=== PATIENT | male | born 1950 | race Caucasian/White ===

== ENCOUNTER 2017-07-09 13:42 | Emergency (ER) | payer MEDICARE, OTHER ==
[~2017-07-09] VITALS: Ht 182.9 cm; Wt 80.7 kg
[~2017-07-09 13:42] MED LIST: ACET325 PO; ALBU90I INH; AMIO200 PO; AMLO5 PO; ARIP10 PO; ARIPIPRAZOLE5 MG PO; ASPI325; ASPI325 PO; ASPI325EC PO; ASPI81CH PO; ATEN25; ATEN25 PO; CELE200; CEPH500 PO; CITA20 PO; CLON.1 PO; CLON.5 PO; Ceftin500 MG PO; DIGO.25 PO; DILT120 PO; DILT120ERA PO; DOXY100 PO; DULO30 PO; DULO60; DULO60 PO; ENTOCORT; FLUO20; FLUSAL2505 IH; FLUSAL2505 INH; FURO20 PO; FURO40 PO; GABA100 PO; GABA300 PO; GABA600 PO; GABA800 PO; GUAI600T33 PO; HYDACE10B PO; HYDACE5; HYDACE5 PO; HYDACE5325; HYDACE5325 PO; HYDCHL12.5 PO; HYDCHL25 PO; HYDHCL25 PO; HYDR1TAB94; HYDR1TAB94 PO; LEVFLO500 PO; LISI10 PO; LISI20 PO; LISI5 PO; LONOX; METO100ER PO; METO25 PO; METO25ER; METO25ER PO; METO50 PO; METO50ER PO; METR250 PO; Motion Sickness25 M1 PO; NEBI5 PO; NICO14TP TOP; NITR.4SL SL; Neurontin 300300 MG PO; Nicoderm Cq1 EAC1 TOP; OMEP40CA12 PO; ONDA4ODT MM; OXYACE5T PO; OXYACE7.5T PO; POTA10T PO; POTCHL10ER PO; POTCHL20ER PO; PRED10 PO; PRED20 PO; PROCODE120 PO; PROM12.5S PR; PROM25 PO; Percocet 5-3251 EACH PO; Prednisone20 MG PO; Prinivil10 MG PO; ROBITUSSIN100 MG/5 M PO; RXHYDACE PO; SIMV20 PO; SIMV80 PO; SPIR25 PO; SULTRIDS PO; TIOT18; TIOT18 IH; TORS10 PO; TORSE20; Toprol Xl50 MG PO; Valium5 MG PO; Ventolin Soln3 ML; Ventolin/Prove6.7 GM; WARF2.5 PO; WARF5; WARF5 PO; WARF6 PO; WARF7.5 PO; XARELTO10 MG PO; XARELTO15 MG PO; Zithromax250 MG PO; [UNRECOGNIZED DRUG - REMARK]; [UNRECOGNIZED DRUG - REMARK]
[2017-07-09] MEDS ORDERED: GABA600 PO ×2 (14:05→15:07)
[2017-07-09] MEDS ORDERED: METO100ER PO (14:06)
[2017-07-09 14:42] LABS: BASOPHILS PERCENT AUTO 1 % (0-2); EOSINOPHILS ABSOLUTE AUTO 0.05 K/mm3 (0.00-0.68); EOSINOPHILS PERCENT AUTO 0 % (0-6); Hematocrit 42.7 % (37.0-53.0); Hemoglobin 14.1 g/dL (13.5-17.5); IMMATURE GRAN ABSOLUTE AUTO 0.23 K/mm3 (0.00-0.10); IMMATURE GRAN PERCENT AUTO 2 % (0-1); LYMPHOCYTES ABSOLUTE AUTO 1.11 K/mm3 (0.84-5.20); LYMPHOCYTES PERCENT AUTO 8 % (21-46); MONOCYTES ABSOLUTE AUTO 1.49 K/mm3 (0.16-1.47); MONOCYTES PERCENT AUTO 10 % (4-13); Mean Corpuscular HGB 28.1 pg (26.0-34.0); Mean Corpuscular Volume 85 fL (80-100); Mean Platelet Volume 10.6 fL (9.1-12.4); NEUTROPHILS PERCENT AUTO 80 % (41-73); Platelet Count 404 K/mm3 (150-400); RDW Coefficient Variation 15.5 % (11.7-14.2); RDW Standard Deviation 47.9 fL (35.1-46.3); Red Blood Cell Count 5.01 M/mm3 (4.30-5.90); White Blood Cell Count 14.88 K/mm3 (4.00-11.30)
[2017-07-09 15:02] LABS: Albumin, Blood 2.4 g/dL (3.4-5.0); Albumin/Globulin Ratio 0.5 (0.8-1.8); Bilirubin, Total 1.6 mg/dL (0.1-1.0); Bun/Creatinine Ratio 19.3 (12.0-20.0); Calcium, Blood 9.3 mg/dL (8.5-10.1); Creatinine, Blood 1.4 mg/dL (0.60-1.20); Globulin, Blood 5.3 g/dL (2.2-4.0); Total Protein, Blood 7.7 g/dL (6.4-8.2)
[2017-07-09] MEDS ORDERED: GABA300 PO (15:06)
[2017-07-09] MEDS ORDERED: Prinivil5 MG PO (15:07)
[2017-07-09] MEDS ORDERED: DILT120 PO (15:07)
[2017-07-09] MEDS ORDERED: DULO30 PO (15:08)
[2017-07-09] MEDS ORDERED: Norco 5-325 Ta1 EACH PO (15:19)
== END 2017-07-09 16:17 | disposition home or self-care (01) ==
LOC: ER 13:42
PROVIDERS: Emergency Medicine
DX: G89.29 Other chronic pain (principal); M25.50 Pain in unspecified joint; N18.9 Chronic kidney disease, unspecified; I48.91 Unspecified atrial fibrillation; J44.9 Chronic obstructive pulmonary disease, unspecified; F31.9 Bipolar disorder, unspecified; Z87.891 Personal history of nicotine dependence; Z79.899 Other long term (current) drug therapy
CPT/HCPCS: 36415; 71046; 80053; 85025; 93005; 93010; 96374; 96375; 99283; J1885; J3010

== ENCOUNTER 2017-07-13 11:48 | Inpatient (IN) | payer MEDICARE ==
[~2017-07-13] VITALS: Ht 182.9 cm; Wt 75.9 kg
[~2017-07-13 11:48] MED LIST changes: +Norco 5-325 Ta1 EACH PO; +Prinivil5 MG PO
[2017-07-13 15:02] LABS: BASOPHILS ABSOLUTE AUTO 0.18 K/mm3 (0.00-0.23); BASOPHILS PERCENT AUTO 1 % (0-2); EOSINOPHILS ABSOLUTE AUTO 0.03 K/mm3 (0.00-0.68); EOSINOPHILS PERCENT AUTO 0 % (0-6); Hematocrit 40.7 % (37.0-53.0); Hemoglobin 13.1 g/dL (13.5-17.5); IMMATURE GRAN ABSOLUTE AUTO 0.54 K/mm3 (0.00-0.10); IMMATURE GRAN PERCENT AUTO 3 % (0-1); LYMPHOCYTES ABSOLUTE AUTO 1.39 K/mm3 (0.84-5.20); LYMPHOCYTES PERCENT AUTO 7 % (21-46); MONOCYTES ABSOLUTE AUTO 2.18 K/mm3 (0.16-1.47); MONOCYTES PERCENT AUTO 11 % (4-13); Mean Corpuscular HGB 27.8 pg (26.0-34.0); Mean Corpuscular HGB Conc 32.2 g/dL (31.5-36.5); Mean Corpuscular Volume 86 fL (80-100); Mean Platelet Volume 10.9 fL (9.1-12.4); NEUTROPHILS ABSOLUTE AUTO 15.62 K/mm3 (1.96-9.15); NEUTROPHILS PERCENT AUTO 78 % (41-73); Platelet Count 485 K/mm3 (150-400); RDW Coefficient Variation 15.7 % (11.7-14.2); RDW Standard Deviation 49.3 fL (35.1-46.3); Red Blood Cell Count 4.72 M/mm3 (4.30-5.90); White Blood Cell Count 19.94 K/mm3 (4.00-11.30)
[2017-07-13 15:11] LABS: International Normalized Ratio 1.46; Prothrombin Time Results 15.4 Sec (9.7-11.5)
[2017-07-13 15:30] LABS: Alanine Aminotransfer (ALT/SGP 23 U/L (12-78); Albumin, Blood 2.5 g/dL (3.4-5.0); Albumin/Globulin Ratio 0.4 (0.8-1.8); Alk Phos 235 U/L (50-136); Anion Gap 8 mmol/L (6-16); Aspartate Aminotrans (AST/SGOT 16 U/L (12-37); Bilirubin, Total 1.5 mg/dL (0.1-1.0); Blood Urea Nitrogen 26 mg/dL (8-24); Bun/Creatinine Ratio 18.6 (12.0-20.0); CO2, Blood 25 mmol/L (21-32); CPK Creatine Kinase 38 U/L (39-308); Calcium, Blood 9.3 mg/dL (8.5-10.1); Chloride, Blood 99 mmol/L (98-108); Globulin, Blood 5.6 g/dL (2.2-4.0); Glomerular Filtration Rate 53 (60-); Glucose, Blood 117 mg/dL (70-99); Magnesium, Blood 2.2 mg/dL (1.6-2.4); Sodium, Blood 132 mmol/L (136-145); Total Protein, Blood 8.1 g/dL (6.4-8.2); Troponin I <0.015 ng/mL (0.000-0.040)
[2017-07-13 15:57] LABS: Creatine Kinase MB <0.5 ng/mL (0.0-3.6); Creatine Kinase MB Index Unable to Calculate (0.0-4.0)
[2017-07-13 16:04] LABS: U Amphetamine Screen Not Detected; U Cannabinoids Screen DETECTED; U Methamphetamine Screen DETECTED; U Opiates Screen DETECTED
[2017-07-13 16:05] LABS: U Barbituate Screen Not Detected; U Benzodiazapine Screen Not Detected; U Buprenorphine Screen Not Detected; U Cocaine Screen Not Detected; U Methadone Screen Not Detected; U Oxycodone Screen Not Detected; U Phencyclidine Screen Not Detected; U Propoxyphene Screen Not Detected
[2017-07-13 16:13] LABS: Bicarbonate Venous 22.8 mmol/L (24.0-30.0); PCO2 Venous 49.3 mmHg (38-42); PO2 Venous 46.1 mmHg (38-42); pH Blood Venous 7.32 (7.34-7.37)
[2017-07-14 07:48] LABS: Hematocrit 32.6 % (37.0-53.0); Mean Corpuscular HGB 28.6 pg (26.0-34.0); Mean Corpuscular HGB Conc 33.7 g/dL (31.5-36.5); Mean Corpuscular Volume 85 fL (80-100); Mean Platelet Volume 10.2 fL (9.1-12.4); Platelet Count 382 K/mm3 (150-400); RDW Coefficient Variation 15.8 % (11.7-14.2); RDW Standard Deviation 48.6 fL (35.1-46.3); Red Blood Cell Count 3.85 M/mm3 (4.30-5.90); White Blood Cell Count 15.78 K/mm3 (4.00-11.30)
[2017-07-14] MEDS ORDERED: DULO30 PO (11:20)
[2017-07-14] MEDS ORDERED: DILT120ERA PO (11:21)
[2017-07-14] MEDS ORDERED: XARELTO20 MG PO (12:31)
[2017-07-14] MEDS ORDERED: Nitrostat0.4 MG SL (12:32)
[2017-07-14] MEDS ORDERED: Abilify5 MG PO (12:33)
[2017-07-15 05:17] LABS: Hematocrit 34.9 % (37.0-53.0); Hemoglobin 11.3 g/dL (13.5-17.5); Mean Corpuscular HGB 27.8 pg (26.0-34.0); Mean Corpuscular HGB Conc 32.4 g/dL (31.5-36.5); Mean Corpuscular Volume 86 fL (80-100); Mean Platelet Volume 10.8 fL (9.1-12.4); Platelet Count 369 K/mm3 (150-400); RDW Coefficient Variation 15.9 % (11.7-14.2); RDW Standard Deviation 49.9 fL (35.1-46.3); Red Blood Cell Count 4.06 M/mm3 (4.30-5.90); White Blood Cell Count 13.31 K/mm3 (4.00-11.30)
[2017-07-15 05:39] LABS: Anion Gap 7 mmol/L (6-16); Blood Urea Nitrogen 24 mg/dL (8-24); Bun/Creatinine Ratio 21.6 (12.0-20.0); CO2, Blood 27 mmol/L (21-32); Chloride, Blood 101 mmol/L (98-108); Creatinine, Blood 1.11 mg/dL (0.60-1.20); Glomerular Filtration Rate >60 (60-); Glucose, Blood 95 mg/dL (70-99); Sodium, Blood 135 mmol/L (136-145)
[2017-07-16] MEDS ORDERED: HYDR1TAB94 PO (10:50)
== END 2017-07-16 16:31 | disposition home or self-care (01) | DRG 300 ==
LOC: ER 11:48 → MEDS 17:38 → ENPENDDIS 07-16 10:06 → MEDS 07-16 16:31
PROVIDERS: Emergency Medicine; Internal Medicine
DX: I77.9 Disorder of arteries and arterioles, unspecified (principal); T82.856A Stenosis of peripheral vascular stent, initial encounter; R65.10 Systemic inflammatory response syndrome (SIRS) of non-infectious origin without acute organ dysfunction; I42.0 Dilated cardiomyopathy; I50.22 Chronic systolic (congestive) heart failure; J44.9 Chronic obstructive pulmonary disease, unspecified; F31.9 Bipolar disorder, unspecified; F17.210 Nicotine dependence, cigarettes, uncomplicated; F10.20 Alcohol dependence, uncomplicated; N18.3 Chronic kidney disease, stage 3 (moderate); Z91.14 Patient's other noncompliance with medication regimen; Z95.810 Presence of automatic (implantable) cardiac defibrillator; I48.2 Chronic atrial fibrillation
CPT/HCPCS: 36415; 71046; 80048; 80053; 82550; 82553; 82803; 83735; 83880; 84443; 84484; 85025; 85027; 85610; 85730; 93005; 93010; 93922; 93923; 93925; 96361; 96374; 96375; 97110; 97116; 97162; 97530; 99285; G8978; G8979; J1644; J1650; J2405; J3010; J7120

== ENCOUNTER 2018-04-06 09:01 | Emergency (ER) | payer MEDICARE, OTHER ==
[~2018-04-06] VITALS: Ht 182.9 cm; Wt 74.5 kg
[~2018-04-06 09:01] MED LIST changes: +Abilify5 MG PO; +Nitrostat0.4 MG SL; +XARELTO20 MG PO
[2018-04-06 10:15] LABS: Bicarbonate Venous 23.1 mmol/L (24.0-30.0); PCO2 Venous 35 mmHg (38-42); PO2 Venous 68 mmHg (38-42); pH Blood Venous 7.41 (7.34-7.37)
[2018-04-06 10:18] LABS: BASOPHILS ABSOLUTE AUTO 0.11 K/mm3 (0.00-0.23); BASOPHILS PERCENT AUTO 1 % (0-2); EOSINOPHILS ABSOLUTE AUTO 0.15 K/mm3 (0.00-0.68); EOSINOPHILS PERCENT AUTO 1 % (0-6); Hematocrit 36.5 % (37.0-53.0); Hemoglobin 11.9 g/dL (13.5-17.5); IMMATURE GRAN ABSOLUTE AUTO 0.19 K/mm3 (0.00-0.10); IMMATURE GRAN PERCENT AUTO 1 % (0-1); LYMPHOCYTES ABSOLUTE AUTO 1.24 K/mm3 (0.84-5.20); LYMPHOCYTES PERCENT AUTO 7 % (21-46); MONOCYTES ABSOLUTE AUTO 1.65 K/mm3 (0.16-1.47); MONOCYTES PERCENT AUTO 9 % (4-13); Mean Corpuscular HGB 25.6 pg (26.0-34.0); Mean Corpuscular HGB Conc 32.6 g/dL (31.5-36.5); Mean Corpuscular Volume 79 fL (80-100); Mean Platelet Volume 9.9 fL (9.1-12.4); NEUTROPHILS ABSOLUTE AUTO 14.57 K/mm3 (1.96-9.15); NEUTROPHILS PERCENT AUTO 81 % (41-73); Platelet Count 382 K/mm3 (150-400); RDW Coefficient Variation 18.5 % (11.7-14.2); RDW Standard Deviation 52.6 fL (35.1-46.3); Red Blood Cell Count 4.65 M/mm3 (4.30-5.90); White Blood Cell Count 17.91 K/mm3 (4.00-11.30)
[2018-04-06 10:37] LABS: Alanine Aminotransfer (ALT/SGP 36 U/L (12-78); Albumin, Blood 2.7 g/dL (3.4-5.0); Albumin/Globulin Ratio 0.5 (0.8-1.8); Alk Phos 272 U/L (50-136); Anion Gap 8 mmol/L (6-16); Aspartate Aminotrans (AST/SGOT 38 U/L (12-37); Blood Urea Nitrogen 24 mg/dL (8-24); Bun/Creatinine Ratio 18.8 (12.0-20.0); CO2, Blood 23 mmol/L (21-32); CPK Creatine Kinase 431 U/L (39-308); Calcium, Blood 8.8 mg/dL (8.5-10.1); Chloride, Blood 99 mmol/L (98-108); Creatinine, Blood 1.28 mg/dL (0.60-1.20); Globulin, Blood 5.1 g/dL (2.2-4.0); Glomerular Filtration Rate 59 (60-); Glucose, Blood 106 mg/dL (70-99); Potassium, Blood 3.6 mmol/L (3.5-5.5); Sodium, Blood 130 mmol/L (136-145); Total Protein, Blood 7.8 g/dL (6.4-8.2); Troponin I <0.015 ng/mL (0.000-0.040)
[2018-04-06 10:41] LABS: Creatine Kinase MB 6.8 ng/mL (0.0-3.6); Creatine Kinase MB Index 1.6 (0.0-4.0)
[2018-04-06 12:09] LABS: Ethanol (Alcohol), Blood, Med <3 mg/dL; Magnesium, Blood 2.2 mg/dL (1.6-2.4)
[2018-04-06 12:29] LABS: International Normalized Ratio 1.42; Prothrombin Time Results 14.6 Sec (9.7-11.5)
== END 2018-04-06 13:14 | disposition short-term general hospital (02) ==
LOC: ER 09:01
PROVIDERS: Emergency Medicine
DX: I77.9 Disorder of arteries and arterioles, unspecified (principal); J18.9 Pneumonia, unspecified organism; I48.92 Unspecified atrial flutter; R79.89 Other specified abnormal findings of blood chemistry; Z88.8 Allergy status to other drugs, medicaments and biological substances; Z88.5 Allergy status to narcotic agent; Z79.899 Other long term (current) drug therapy; N18.9 Chronic kidney disease, unspecified; I48.91 Unspecified atrial fibrillation; J44.9 Chronic obstructive pulmonary disease, unspecified; F31.9 Bipolar disorder, unspecified; F17.210 Nicotine dependence, cigarettes, uncomplicated
CPT/HCPCS: 36415; 71045; 80053; 82550; 82553; 82803; 83605; 83735; 84484; 85025; 85610; 85730; 87040; 93005; 93010; 96361; 96365; 96367; 96375; 99285-25; G0480; J0696; J1644; J2405; J3475; J7030

== ENCOUNTER → 2018-04-22 | Outpatient (CLI) | payer MEDICARE, OTHER ==
[2018-04-22 13:24] LABS: BASOPHILS ABSOLUTE AUTO 0.24 K/mm3 (0.00-0.23); BASOPHILS PERCENT AUTO 2 % (0-2); EOSINOPHILS ABSOLUTE AUTO 0.48 K/mm3 (0.00-0.68); EOSINOPHILS PERCENT AUTO 3 % (0-6); Hematocrit 28.6 % (37.0-53.0); Hemoglobin 8.8 g/dL (13.5-17.5); IMMATURE GRAN ABSOLUTE AUTO 0.11 K/mm3 (0.00-0.10); IMMATURE GRAN PERCENT AUTO 1 % (0-1); LYMPHOCYTES ABSOLUTE AUTO 1.85 K/mm3 (0.84-5.20); LYMPHOCYTES PERCENT AUTO 13 % (21-46); MONOCYTES ABSOLUTE AUTO 1.02 K/mm3 (0.16-1.47); MONOCYTES PERCENT AUTO 7 % (4-13); Mean Corpuscular HGB 24.7 pg (26.0-34.0); Mean Corpuscular HGB Conc 30.8 g/dL (31.5-36.5); Mean Corpuscular Volume 80 fL (80-100); Mean Platelet Volume 9.3 fL (9.1-12.4); NEUTROPHILS ABSOLUTE AUTO 10.32 K/mm3 (1.96-9.15); NEUTROPHILS PERCENT AUTO 74 % (41-73); Platelet Count 680 K/mm3 (150-400); RDW Coefficient Variation 19.4 % (11.7-14.2); RDW Standard Deviation 55.9 fL (35.1-46.3); Red Blood Cell Count 3.56 M/mm3 (4.30-5.90); White Blood Cell Count 14.02 K/mm3 (4.00-11.30)
[2018-04-22 13:29] LABS: Bilirubin, Urine Neg (Neg); Blood, Urine Neg (Neg); Glucose Qualitative, Urine Neg (Neg); Ketones, Urine Neg (Neg); Leukocyte Esterase, Urine Neg (Neg); Nitrite, Urine Neg (Neg); Protein, Urine Neg (Neg); Urobilinogen, Urine NORM (Normal)
[2018-04-22 13:57] LABS: Anion Gap 8 mmol/L (6-16); Blood Urea Nitrogen 18 mg/dL (8-24); CO2, Blood 26 mmol/L (21-32); Calcium, Blood 9.1 mg/dL (8.5-10.1); Chloride, Blood 103 mmol/L (98-108); Glomerular Filtration Rate >60 (60-); Glucose, Blood 79 mg/dL (70-99); Potassium, Blood 4.8 mmol/L (3.5-5.5); Sodium, Blood 137 mmol/L (136-145)
[2018-04-22 14:03] LABS: Appearance, Urine Clear (Clear); Color, Urine Yellow (P-Yellow)
== END | disposition home or self-care (01) ==
LOC: EDSTATUS 08:15 → LAB UVN 13:14 → LAB 13:14 → LAB SHORT 13:14
PROVIDERS: Nurse Practitioner Family
DX: N39.0 Urinary tract infection, site not specified (principal); R53.81 Other malaise; R10.9 Unspecified abdominal pain
CPT/HCPCS: 80048; 81003; 85025

== ENCOUNTER 2018-05-20 12:34 | Observation (INO) | payer MEDICARE, OTHER ==
[~2018-05-20] VITALS: Ht 182.9 cm; Wt 72.5 kg
[2018-05-20 13:03] LABS: BASOPHILS PERCENT AUTO 1 % (0-2); EOSINOPHILS PERCENT AUTO 4 % (0-6); Hematocrit 33.4 % (37.0-53.0); Hemoglobin 10.3 g/dL (13.5-17.5); IMMATURE GRAN ABSOLUTE AUTO 0.06 K/mm3 (0.00-0.10); IMMATURE GRAN PERCENT AUTO 1 % (0-1); LYMPHOCYTES ABSOLUTE AUTO 1.61 K/mm3 (0.84-5.20); LYMPHOCYTES PERCENT AUTO 14 % (21-46); MONOCYTES ABSOLUTE AUTO 0.97 K/mm3 (0.16-1.47); MONOCYTES PERCENT AUTO 9 % (4-13); Mean Corpuscular HGB 24.1 pg (26.0-34.0); Mean Corpuscular HGB Conc 30.8 g/dL (31.5-36.5); Mean Corpuscular Volume 78 fL (80-100); Mean Platelet Volume 10.3 fL (9.1-12.4); NEUTROPHILS ABSOLUTE AUTO 8.29 K/mm3 (1.96-9.15); NEUTROPHILS PERCENT AUTO 73 % (41-73); Platelet Count 480 K/mm3 (150-400); RDW Coefficient Variation 18.1 % (11.7-14.2); Red Blood Cell Count 4.28 M/mm3 (4.30-5.90); White Blood Cell Count 11.43 K/mm3 (4.00-11.30)
[2018-05-20 13:32] LABS: Alanine Aminotransfer (ALT/SGP 19 U/L (12-78); Albumin, Blood 2.8 g/dL (3.4-5.0); Albumin/Globulin Ratio 0.5 (0.8-1.8); Alk Phos 180 U/L (50-136); Anion Gap 9 mmol/L (6-16); Aspartate Aminotrans (AST/SGOT 9 U/L (12-37); Bilirubin, Total 0.7 mg/dL (0.1-1.0); Blood Urea Nitrogen 18 mg/dL (8-24); Bun/Creatinine Ratio 16.2 (12.0-20.0); CO2, Blood 24 mmol/L (21-32); Chloride, Blood 103 mmol/L (98-108); Creatinine, Blood 1.11 mg/dL (0.60-1.20); Globulin, Blood 5.3 g/dL (2.2-4.0); Glomerular Filtration Rate >60 (60-); Glucose, Blood 142 mg/dL (70-99); Potassium, Blood 3.4 mmol/L (3.5-5.5); Sodium, Blood 136 mmol/L (136-145); Total Protein, Blood 8.1 g/dL (6.4-8.2)
[2018-05-20] MEDS ORDERED: ATOR40TA PO (14:44)
[2018-05-20] MEDS ORDERED: DILTIAZEM 24HR120 MG PO (14:44)
[2018-05-20] MEDS ORDERED: OXYC5 PO (14:55)
[2018-05-21 04:46] LABS: BASOPHILS ABSOLUTE AUTO 0.08 K/mm3 (0.00-0.23); BASOPHILS PERCENT AUTO 1 % (0-2); EOSINOPHILS PERCENT AUTO 6 % (0-6); Hematocrit 28.4 % (37.0-53.0); Hemoglobin 8.7 g/dL (13.5-17.5); IMMATURE GRAN ABSOLUTE AUTO 0.03 K/mm3 (0.00-0.10); IMMATURE GRAN PERCENT AUTO 0 % (0-1); LYMPHOCYTES ABSOLUTE AUTO 1.41 K/mm3 (0.84-5.20); LYMPHOCYTES PERCENT AUTO 17 % (21-46); MONOCYTES ABSOLUTE AUTO 0.87 K/mm3 (0.16-1.47); MONOCYTES PERCENT AUTO 11 % (4-13); Mean Corpuscular HGB 23.6 pg (26.0-34.0); Mean Corpuscular HGB Conc 30.6 g/dL (31.5-36.5); Mean Corpuscular Volume 77 fL (80-100); Mean Platelet Volume 10.2 fL (9.1-12.4); NEUTROPHILS PERCENT AUTO 65 % (41-73); Platelet Count 387 K/mm3 (150-400); RDW Standard Deviation 50.2 fL (35.1-46.3); Red Blood Cell Count 3.69 M/mm3 (4.30-5.90); White Blood Cell Count 8.19 K/mm3 (4.00-11.30)
[2018-05-21 05:02] LABS: Anion Gap 8 mmol/L (6-16); Blood Urea Nitrogen 15 mg/dL (8-24); Bun/Creatinine Ratio 14.9 (12.0-20.0); CO2, Blood 22 mmol/L (21-32); Calcium, Blood 8.5 mg/dL (8.5-10.1); Chloride, Blood 108 mmol/L (98-108); Creatinine, Blood 1.01 mg/dL (0.60-1.20); Glomerular Filtration Rate >60 (60-); Glucose, Blood 88 mg/dL (70-99); Potassium, Blood 3.8 mmol/L (3.5-5.5); Sodium, Blood 138 mmol/L (136-145)
[2018-05-21 13:47] LABS: Hematocrit 31.2 % (37.0-53.0); Hemoglobin 9.4 g/dL (13.5-17.5); Mean Corpuscular HGB 23.6 pg (26.0-34.0); Mean Corpuscular HGB Conc 30.1 g/dL (31.5-36.5); Mean Corpuscular Volume 78 fL (80-100); Mean Platelet Volume 9.8 fL (9.1-12.4); Platelet Count 442 K/mm3 (150-400); RDW Coefficient Variation 18.1 % (11.7-14.2); RDW Standard Deviation 51.2 fL (35.1-46.3); Red Blood Cell Count 3.99 M/mm3 (4.30-5.90); White Blood Cell Count 9.73 K/mm3 (4.00-11.30)
[2018-05-21 13:54] LABS: Anion Gap 7 mmol/L (6-16); Blood Urea Nitrogen 16 mg/dL (8-24); Bun/Creatinine Ratio 16.1 (12.0-20.0); CO2, Blood 25 mmol/L (21-32); Calcium, Blood 8.7 mg/dL (8.5-10.1); Chloride, Blood 108 mmol/L (98-108); Creatinine, Blood 0.99 mg/dL (0.60-1.20); Glomerular Filtration Rate >60 (60-); Glucose, Blood 96 mg/dL (70-99); Potassium, Blood 3.9 mmol/L (3.5-5.5); Sodium, Blood 140 mmol/L (136-145)
[2018-05-21] MEDS ORDERED: ACET325 PO (15:45)
[2018-05-21] MEDS ORDERED: FOLI1 PO (15:51)
[2018-05-21] MEDS ORDERED: Hair, Skin & N1 EACH PO (15:52)
[2018-05-21] MEDS ORDERED: K-Tab10 MEQ PO (15:53)
[2018-05-21] MEDS ORDERED: ONDA4ODT MM (15:54)
[2018-05-21] MEDS ORDERED: Thiamine HCl100 MG PO (15:54)
[2018-05-21] MEDS ORDERED: ONE DAILY ESS400 MCG PO (15:57)
--- NOTE | 2018-05-21 17:13 | NUR ---
1700 PT DISCHARGED HOME VIA PERSONAL VEHICLE ACCOMPANIED AND DRIVEN BY FRIEND. PT ESCORTED TO FACILITY ENTRANCE VIA W/C BY VIDEO GAME REPAIR TECHNICIAN. IV REMOVED. TELE SENT TO U. D/C PAPERWORK REVIEWED WITH PT AND COPY PROVIDED. NEW RX FAXED TO [facility] PER PT REQUEST. NO NEW CHANGES OR CONCERNS.
== END 2018-05-21 17:02 | disposition home or self-care (01) ==
LOC: ER 12:34 → ERHOLD 12:35 → MEDS 20:08
PROVIDERS: Emergency Medicine; ADMIT Family Medicine
DX: Z45.018 Encounter for adjustment and management of other part of cardiac pacemaker (principal); I48.91 Unspecified atrial fibrillation; I25.10 Atherosclerotic heart disease of native coronary artery without angina pectoris; I42.9 Cardiomyopathy, unspecified; I50.20 Unspecified systolic (congestive) heart failure; N18.3 Chronic kidney disease, stage 3 (moderate); D63.1 Anemia in chronic kidney disease; J44.9 Chronic obstructive pulmonary disease, unspecified; E87.6 Hypokalemia; D72.829 Elevated white blood cell count, unspecified; F31.9 Bipolar disorder, unspecified; Z87.891 Personal history of nicotine dependence; Z88.8 Allergy status to other drugs, medicaments and biological substances; Z88.1 Allergy status to other antibiotic agents; Z88.5 Allergy status to narcotic agent; Z79.899 Other long term (current) drug therapy; Z79.02 Long term (current) use of antithrombotics/antiplatelets
CPT/HCPCS: 36415; 71045; 80048; 80053; 83735; 84443; 84484; 85025; 85027; 93005; 93010; 96360; 96361; 99285-25; G0378; J7030

== ENCOUNTER 2019-02-12 17:14 | Inpatient (IN) | payer MEDICARE, OTHER ==
[~2019-02-12] VITALS: Ht 172.7 cm; Wt 61.5 kg
[~2019-02-12 17:14] MED LIST changes: +ATOR40TA PO; +DILTIAZEM 24HR120 MG PO; +FOLI1 PO; +Hair, Skin & N1 EACH PO; +K-TAB ER20 ME1 PO; +ONE DAILY ESS400 MCG PO; +Thiamine HCl100 MG PO
[2019-02-12 17:56] LABS: BASOPHILS ABSOLUTE AUTO 0.11 K/mm3 (0.00-0.23); BASOPHILS PERCENT AUTO 1 % (0-2); EOSINOPHILS ABSOLUTE AUTO 0.15 K/mm3 (0.00-0.68); EOSINOPHILS PERCENT AUTO 1 % (0-6); Hematocrit 32.8 % (37.0-53.0); Hemoglobin 9.5 g/dL (13.5-17.5); IMMATURE GRAN ABSOLUTE AUTO 0.09 K/mm3 (0.00-0.10); IMMATURE GRAN PERCENT AUTO 1 % (0-1); LYMPHOCYTES ABSOLUTE AUTO 1.37 K/mm3 (0.84-5.20); LYMPHOCYTES PERCENT AUTO 13 % (21-46); MONOCYTES ABSOLUTE AUTO 1.12 K/mm3 (0.16-1.47); MONOCYTES PERCENT AUTO 11 % (4-13); Mean Corpuscular HGB 19.3 pg (26.0-34.0); Mean Corpuscular Volume 67 fL (80-100); Mean Platelet Volume 9.7 fL (9.1-12.4); NEUTROPHILS ABSOLUTE AUTO 7.61 K/mm3 (1.96-9.15); NEUTROPHILS PERCENT AUTO 73 % (41-73); Platelet Count 534 K/mm3 (150-400); RDW Coefficient Variation 20.5 % (11.7-14.2); RDW Standard Deviation 47.4 fL (35.1-46.3); Red Blood Cell Count 4.91 M/mm3 (4.30-5.90); White Blood Cell Count 10.45 K/mm3 (4.00-11.30)
[2019-02-12 18:11] LABS: Alanine Aminotransfer (ALT/SGP 15 U/L (12-78); Albumin, Blood 2.3 g/dL (3.4-5.0); Albumin/Globulin Ratio 0.4 (0.8-1.8); Alk Phos 166 U/L (50-136); Anion Gap 11 mmol/L (6-16); Aspartate Aminotrans (AST/SGOT 14 U/L (12-37); Blood Urea Nitrogen 21 mg/dL (8-24); Bun/Creatinine Ratio 18.3 (12.0-20.0); CO2, Blood 22 mmol/L (21-32); Chloride, Blood 103 mmol/L (98-108); Creatinine, Blood 1.15 mg/dL (0.60-1.20); Ethanol (Alcohol), Blood, Med <3 mg/dL; Globulin, Blood 5.4 g/dL (2.2-4.0); Glomerular Filtration Rate >60 (60-); Glucose, Blood 100 mg/dL (70-99); Magnesium, Blood 1.7 mg/dL (1.6-2.4); Potassium, Blood 3.6 mmol/L (3.5-5.5); Sodium, Blood 136 mmol/L (136-145); Total Protein, Blood 7.7 g/dL (6.4-8.2); Troponin I <0.015 ng/mL (0.000-0.040)
[2019-02-12 18:13] LABS: International Normalized Ratio 1.3; Prothrombin Time Results 13.5 Sec (9.7-11.5)
[2019-02-12 18:14] LABS: Free Thyroxine 1.29 ng/dL (0.70-1.60)
[2019-02-12 18:41] LABS: Source, Urine Catheter
[2019-02-12 18:44] LABS: Blood, Urine 2+ (Neg); Glucose Qualitative, Urine Neg (Neg); Ketones, Urine 3+ (Neg); Leukocyte Esterase, Urine 1+ (Neg); Nitrite, Urine Neg (Neg); Protein, Urine 2+ (Neg); Urobilinogen, Urine 2+ (Normal)
[2019-02-12 18:51] LABS: Bilirubin, Urine 1+ (Neg)
[2019-02-12 18:54] LABS: Appearance, Urine Clear (Clear); Color, Urine Yellow (P-Yellow)
[2019-02-12 18:55] LABS: White Blood Cells, Urine 0-2 /hpf (0-5)
[2019-02-12 18:56] LABS: Bacteria Rare /hpf; Squamous Epithelial Cells Not Seen /hpf (Few); Yeast/Fungi Urine Rare /hpf
[2019-02-12] MEDS ORDERED: Neurontin400 MG PO (19:28)
[2019-02-12 21:26] LABS: U Amphetamine Screen DETECTED; U Barbituate Screen Not Detected; U Methamphetamine Screen DETECTED
[2019-02-12 21:27] LABS: U Benzodiazapine Screen Not Detected; U Buprenorphine Screen DETECTED; U Cannabinoids Screen DETECTED; U Cocaine Screen Not Detected; U Methadone Screen Not Detected; U Opiates Screen Not Detected; U Oxycodone Screen Not Detected; U Phencyclidine Screen Not Detected; U Propoxyphene Screen Not Detected
--- NOTE | 2019-02-13 01:43 | NUR ---
ASSUME CARE RECEIVED REPORT FROM ANGELA SALAMANCA (). PATIENT ADMITTED WITH AMS AND AFIB W RVR. PATIENT ARRIVED FROM ED ALERT, BUT CONFUSED. WOULD NOT FOLLOW COMMANDS, MUMBLED WORDS. TRUJILLO 16F PLACED IN ED, PATENT WITH CLEAR YELLOW URINE. BLOOD NOTED AROUND URETHRA FROM PT PULLING AT TRUJILLO. PATIENT ON 2L NC SATS ABOVE 94%. LACTIC ACID 2.2. BANANA BAG AND IVF ORDERED. 20G TO R AC COVERED W COBAND TO PREVENT PT PULLING. LACTIC ACID 2.2. NOTIFIED- OKAY WITH IV FLUIDS AND BANANA BAG ORDERED IN TO BE FINISHED IN ICU/PCU. LUNGS CTAB. CARDIAC DIET ORDERED. PATIENT ON CWA PROTOCOL FOR POSSIBLE WITHDRAWALS. WILL CONTINUE TO MONITOR.
[2019-02-13 03:31] LABS: BASOPHILS ABSOLUTE AUTO 0.09 K/mm3 (0.00-0.23); BASOPHILS PERCENT AUTO 1 % (0-2); EOSINOPHILS ABSOLUTE AUTO 0.15 K/mm3 (0.00-0.68); EOSINOPHILS PERCENT AUTO 2 % (0-6); Hematocrit 28.6 % (37.0-53.0); Hemoglobin 8.4 g/dL (13.5-17.5); IMMATURE GRAN ABSOLUTE AUTO 0.05 K/mm3 (0.00-0.10); IMMATURE GRAN PERCENT AUTO 1 % (0-1); LYMPHOCYTES ABSOLUTE AUTO 1.81 K/mm3 (0.84-5.20); LYMPHOCYTES PERCENT AUTO 19 % (21-46); MONOCYTES ABSOLUTE AUTO 0.98 K/mm3 (0.16-1.47); MONOCYTES PERCENT AUTO 10 % (4-13); Mean Corpuscular HGB 19.3 pg (26.0-34.0); Mean Corpuscular HGB Conc 29.4 g/dL (31.5-36.5); Mean Corpuscular Volume 66 fL (80-100); Mean Platelet Volume 9.5 fL (9.1-12.4); NEUTROPHILS ABSOLUTE AUTO 6.58 K/mm3 (1.96-9.15); NEUTROPHILS PERCENT AUTO 68 % (41-73); Platelet Count 425 K/mm3 (150-400); RDW Coefficient Variation 20.2 % (11.7-14.2); RDW Standard Deviation 45.3 fL (35.1-46.3); Red Blood Cell Count 4.36 M/mm3 (4.30-5.90); White Blood Cell Count 9.66 K/mm3 (4.00-11.30)
[2019-02-13 03:48] LABS: Anion Gap 7 mmol/L (6-16); Blood Urea Nitrogen 17 mg/dL (8-24); Bun/Creatinine Ratio 16.5 (12.0-20.0); CO2, Blood 24 mmol/L (21-32); Calcium, Blood 8.3 mg/dL (8.5-10.1); Chloride, Blood 105 mmol/L (98-108); Creatinine, Blood 1.03 mg/dL (0.60-1.20); Glomerular Filtration Rate >60 (60-); Glucose, Blood 110 mg/dL (70-99); Magnesium, Blood 1.9 mg/dL (1.6-2.4); Potassium, Blood 3.2 mmol/L (3.5-5.5); Sodium, Blood 136 mmol/L (136-145)
--- NOTE | 2019-02-13 07:20 | NUR ---
SHIFT SUMMARY PT IS NOW MORE RESPONSIVE, ANSWERS SOME QUESTIONS. STILL BOUTS OF CONFUSION, GARBLED SPEECH. AFIB WITH RVR CONTINUED WITH PVC'S. PVC OCCURENCE INCREASED THROUGHOUT NIGHT. PATIENT RECEIVED 1G ATIVAN PER CWA. SATS ABOVE 94% ON RA. LUNGS CTAB, DIMINISHED BASES. WILL CONTINUE TO MONITOR UNTIL SHIFT CHANGE WITH ONCOMING NURSE.
--- NOTE | 2019-02-13 08:48 | NUR ---
CARE ASSUMED CARE AND REPORT ASSUMED FROM RADHA MILLER. PT SLEEPING BUT EASILY AROUSES. NO PAIN AT THIS TIME. HR AFIB WITH RUNS OF RVR, HR 100-140S. LUNG SOUNDS DIMINISHED THROUGHOUT. CXR OBTAINED AT CHANGE OF SHIFT. NS BOLUS INFUSION STARTED ALONG WITH ANTIBIOTICS. MD NOTIFIED ABOUT LOW POTASSIUM; REPLACEMENT ORDERED. WILL CONTINUE TO MONITOR.
--- NOTE | 2019-02-13 11:40 | NUR ---
REASSESMENT PT CONFUSED, AGIATED AND ATTEMPTING TO GET OUT OF BED. ATIVAN 1 MG IVP GIVEN. CIWA 14. AFIB, HR 110-130. BANANA BAG INFUSING. TRUJILLO CATH REMAINS PATENT AND DRAINING. HAVING TO CONTINUALLY REORIENT PT AND ENCOURAGE TO REMAIN CALM AND IN BED. WILL CONTINUE TO MONITOR.
--- NOTE | 2019-02-13 11:42 | NUR ---
Echocardiogram completed.
[2019-02-13] MEDS ORDERED: FURO40 PO (16:25)
[2019-02-13] MEDS ORDERED: THERA1 EACH PO (16:26)
[2019-02-13] MEDS ORDERED: LIDO700A20 TOP (16:26)
[2019-02-13] MEDS ORDERED: OMEPRAZOLE20 MG PO (16:27)
[2019-02-13] MEDS ORDERED: VITAMIN D-32000 UNIT PO (16:28)
[2019-02-13] MEDS ORDERED: Prednisone10 MG PO (16:28)
[2019-02-13] MEDS ORDERED: ASCO500 PO (16:30)
[2019-02-13] MEDS ORDERED: Amiodarone HCl200 MG PO (16:30)
--- NOTE | 2019-02-13 18:29 | NUR ---
SHIFT SUMMARY PT SLEPT MOST OF DAY. IS LESS ALTERED THIS EVENING; ASKING WHERE HE IS AND HOW HE GOT HERE. RECEIVED BEDBATH AND LINEN CHANGE. HAS BEEN IN AFIB ENTIRE SHIFT, WITH IMPROVEMENT IN HR; HR NOW 100-110. RECEIVED 1800 ML BOLUS FLUID PER SEPSIS BUNDLE ALONG WITH BANANA BAG. POTASSIUM REPLACED ORALLY. 1 DOSE OF ATIVAN GIVEN FOR ELEVATED CIWA AND AGITATION. BP WNL. MIV NS INFUSING AT 100 ML/HR PER ORDER. WILL GIVE BEDSIDE, HANDOFF REPORT TO NOC RN.
[2019-02-14 03:50] LABS: BASOPHILS PERCENT AUTO 1 % (0-2); EOSINOPHILS ABSOLUTE AUTO 0.44 K/mm3 (0.00-0.68); EOSINOPHILS PERCENT AUTO 4 % (0-6); Hematocrit 29.5 % (37.0-53.0); Hemoglobin 8.6 g/dL (13.5-17.5); IMMATURE GRAN ABSOLUTE AUTO 0.04 K/mm3 (0.00-0.10); IMMATURE GRAN PERCENT AUTO 0 % (0-1); LYMPHOCYTES ABSOLUTE AUTO 1.38 K/mm3 (0.84-5.20); LYMPHOCYTES PERCENT AUTO 14 % (21-46); MONOCYTES ABSOLUTE AUTO 0.89 K/mm3 (0.16-1.47); MONOCYTES PERCENT AUTO 9 % (4-13); Mean Corpuscular HGB 19.4 pg (26.0-34.0); Mean Corpuscular HGB Conc 29.2 g/dL (31.5-36.5); Mean Corpuscular Volume 66 fL (80-100); Mean Platelet Volume 9.4 fL (9.1-12.4); NEUTROPHILS ABSOLUTE AUTO 7.36 K/mm3 (1.96-9.15); NEUTROPHILS PERCENT AUTO 72 % (41-73); Platelet Count 406 K/mm3 (150-400); RDW Coefficient Variation 20.5 % (11.7-14.2); RDW Standard Deviation 47.4 fL (35.1-46.3); Red Blood Cell Count 4.44 M/mm3 (4.30-5.90); White Blood Cell Count 10.21 K/mm3 (4.00-11.30)
[2019-02-14 04:06] LABS: Anion Gap 6 mmol/L (6-16); Blood Urea Nitrogen 12 mg/dL (8-24); Bun/Creatinine Ratio 12.4 (12.0-20.0); CO2, Blood 24 mmol/L (21-32); Calcium, Blood 8.2 mg/dL (8.5-10.1); Chloride, Blood 108 mmol/L (98-108); Creatinine, Blood 0.97 mg/dL (0.60-1.20); Glomerular Filtration Rate >60 (60-); Glucose, Blood 88 mg/dL (70-99); Magnesium, Blood 1.9 mg/dL (1.6-2.4); Potassium, Blood 3.7 mmol/L (3.5-5.5); Sodium, Blood 138 mmol/L (136-145)
--- NOTE | 2019-02-14 05:33 | NUR ---
SHIFT SUMMARY PATIENT ALERT, BUT STILL CONFUSED. HALLUCATIONS (AUDIO AND VISUAL) SEEM TO BE INCREASING THIS SHIFT. HR 100-110S WITH SHORT EPISODES OF 140S (LASTING 5-10 SECONDS). URINE CLEAR YELLOW. AFEBRILE. SBP 120-150S. LINENS CHANGED AND PATIENT WIPED DOWN. NO BM THIS SHIFT. NS AT 100/HR PER SEPSIS BUNDLE. LUNGS CTAB. SATS ABOVE 95% ON RA. WILL CONTINUE TO MONITOR UNTIL REPORT GIUEN TO ONCOMING NURSE.
--- NOTE | 2019-02-14 08:00 | NUR ---
INITIAL ASSESMENT PT TRYING TO CLIMB OUT OF BED WITH LEGS HANGING OVER RAIL, POSI VEST IN PLACE PER MD ORDER. PT CONFUSED, PLEASENT AND REDIRECTABLE. AGGITATED AT TIMES AND "WANTS A BEER". VSS, PALP PULSES T/O, AFEBRILE AND NO EDEMA. RA WITH SATS IN THE HIGH 90S AND NO S/S OF RESP DISTRESS OR SOB. ABD SOFT FLAT AND NON TENDER WITH BTS T/O. UO ADEQUATE VIA TRUJILLO CLEAR AND YELLOW. NO SKIN ISSUES, RESTRAINTS PER PROTOCOL. CIWA PER MD ORDER, WILL CONT TO MONITOR.
[2019-02-14 09:09] LABS: BASOPHILS ABSOLUTE AUTO 0.09 K/mm3 (0.00-0.23); BASOPHILS PERCENT AUTO 1 % (0-2); EOSINOPHILS ABSOLUTE AUTO 0.42 K/mm3 (0.00-0.68); EOSINOPHILS PERCENT AUTO 4 % (0-6); Hematocrit 30.5 % (37.0-53.0); Hemoglobin 8.7 g/dL (13.5-17.5); IMMATURE GRAN ABSOLUTE AUTO 0.07 K/mm3 (0.00-0.10); IMMATURE GRAN PERCENT AUTO 1 % (0-1); LYMPHOCYTES ABSOLUTE AUTO 1.29 K/mm3 (0.84-5.20); LYMPHOCYTES PERCENT AUTO 13 % (21-46); MONOCYTES PERCENT AUTO 9 % (4-13); Mean Corpuscular HGB 19.2 pg (26.0-34.0); Mean Corpuscular HGB Conc 28.5 g/dL (31.5-36.5); Mean Corpuscular Volume 67 fL (80-100); Mean Platelet Volume 9.2 fL (9.1-12.4); NEUTROPHILS ABSOLUTE AUTO 7.43 K/mm3 (1.96-9.15); NEUTROPHILS PERCENT AUTO 73 % (41-73); Platelet Count 436 K/mm3 (150-400); RDW Coefficient Variation 20.4 % (11.7-14.2); RDW Standard Deviation 48.6 fL (35.1-46.3); Red Blood Cell Count 4.54 M/mm3 (4.30-5.90)
--- NOTE | 2019-02-14 14:49 | NUR ---
Brief Pt visit this afternoon. Pt is A&O to self only. Pt's speach is slurred and difficult to understand. Attempted to reo-orientate Pt with current place, reason for hospital stay, and current year. 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 Pt appears comfortable at this time. Spoke with bedside nurse Trung and discussed case. Palliative Care will F/U when family is present.
--- NOTE | 2019-02-14 16:00 | NUR ---
PT UPDATE PT REMAINS INTERMIT CONFUSED AND ORIENT TO SELF AND PLACE. CIWA ASSESMENT Q2 WITH PRN ATIVAN PER MD ORDER. HR GRADUAL INCREASE T/O SHIFT TO THE 140S-160S MD ADVISED AND DILT QTT STARTED TO KEEP HR BELOW 100. SBP STABLE. RA CLEAR AND DIM BILAT. UO ADEQUATE.VEST IN PLACE AND SECURE SKIN INTACT.
--- NOTE | 2019-02-14 19:45 | NUR ---
ASSUMPTION OF CARE PT AWAKE IN BED, ORIENTED TO SELF, PT ABLE TO IDENTIFY CURRENT CITY BUT NOT FACILITY OR SITUATION, PT DOES NOT KNOW MONTH/DAY BUT WAS ABLE TO IDENTIFY UPCOMING HOLIDAY (), PT ANSWERS QUESTIONS APROPRIATELY BUT HAS SOME NONSENSICAL SPEECH/STATEMENTS SUCH "THIS DIRT IS GETTING SILLY", CIWA SCORE OF 7. O2 SATURATIONS 100% ON RA, LUNGS DIMINISHED T/O. MONITOR SHOWS AFIB WITH RATE 80'S-90'S, DILTIAZEM GTT @ 10mg/hr. TRUJILLO IN PLACE DRAINING CLEAR YELLOW URINE. PT TOLERATING ANUSHA VEST WELL. CALL LIGHT IN REACH AND PT INSTRUCTED ON USE.
[2019-02-15 03:34] LABS: BASOPHILS ABSOLUTE AUTO 0.08 K/mm3 (0.00-0.23); BASOPHILS PERCENT AUTO 1 % (0-2); EOSINOPHILS ABSOLUTE AUTO 0.43 K/mm3 (0.00-0.68); EOSINOPHILS PERCENT AUTO 5 % (0-6); Hematocrit 32.9 % (37.0-53.0); Hemoglobin 9.5 g/dL (13.5-17.5); IMMATURE GRAN ABSOLUTE AUTO 0.05 K/mm3 (0.00-0.10); IMMATURE GRAN PERCENT AUTO 1 % (0-1); LYMPHOCYTES ABSOLUTE AUTO 1.08 K/mm3 (0.84-5.20); LYMPHOCYTES PERCENT AUTO 12 % (21-46); MONOCYTES ABSOLUTE AUTO 0.73 K/mm3 (0.16-1.47); MONOCYTES PERCENT AUTO 8 % (4-13); Mean Corpuscular HGB 19.1 pg (26.0-34.0); Mean Corpuscular HGB Conc 28.9 g/dL (31.5-36.5); Mean Corpuscular Volume 66 fL (80-100); NEUTROPHILS ABSOLUTE AUTO 6.94 K/mm3 (1.96-9.15); NEUTROPHILS PERCENT AUTO 75 % (41-73); Platelet Count 428 K/mm3 (150-400); RDW Coefficient Variation 20.8 % (11.7-14.2); RDW Standard Deviation 47.2 fL (35.1-46.3); Red Blood Cell Count 4.98 M/mm3 (4.30-5.90); White Blood Cell Count 9.31 K/mm3 (4.00-11.30)
[2019-02-15 03:52] LABS: Alanine Aminotransfer (ALT/SGP 12 U/L (12-78); Albumin, Blood 2.1 g/dL (3.4-5.0); Albumin/Globulin Ratio 0.4 (0.8-1.8); Alk Phos 147 U/L (50-136); Anion Gap 8 mmol/L (6-16); Aspartate Aminotrans (AST/SGOT 6 U/L (12-37); Bilirubin, Direct 0.2 mg/dL (0.0-0.3); Bilirubin, Indirect 0.1 mg/dL (0.1-0.7); Bilirubin, Total 0.3 mg/dL (0.1-1.0); Blood Urea Nitrogen 8 mg/dL (8-24); Bun/Creatinine Ratio 9.8 (12.0-20.0); CO2, Blood 23 mmol/L (21-32); Calcium, Blood 8.4 mg/dL (8.5-10.1); Chloride, Blood 107 mmol/L (98-108); Creatinine, Blood 0.82 mg/dL (0.60-1.20); Globulin, Blood 4.8 g/dL (2.2-4.0); Glomerular Filtration Rate >60 (60-); Glucose, Blood 127 mg/dL (70-99); Phosphorus, Blood 2.9 mg/dL (2.5-4.9); Potassium, Blood 3.4 mmol/L (3.5-5.5); Sodium, Blood 138 mmol/L (136-145); Total Protein, Blood 6.9 g/dL (6.4-8.2)
--- NOTE | 2019-02-15 06:44 | NUR ---
SHIFT SUMMARY PT RESTED T/O SHIFT, AWAKES EASILY, ORIENTED TO SELF AND LOCATION WITH PERIODS OF CONFUSION REGARDING DATE AND SITUATION, CIWA FROM 3-14, ATIVAN AND LIBRIUM PROVIDED NEEDED/ORDERED. PT MAINTAINED O2 SATURATIONS ABOVE 90% T/O SHIFT ON ROOM AIR, LUNGS DIMINISHED T/O. MONITOR SHOWS AFIB WITH RATE 80'S-105, DILTIAZEM ON SB SINCE APPROX 2300, PT HYPERTENSIVE WITH BP 140'S SYSTOLIC. PT TOLERATED PO INTAKE WELL. TRUJILLO IN PLACE, DRAINING CLEAR YELLOW URINE.
[2019-02-15 08:39] LABS: BASOPHILS ABSOLUTE AUTO 0.08 K/mm3 (0.00-0.23); BASOPHILS PERCENT AUTO 1 % (0-2); EOSINOPHILS ABSOLUTE AUTO 0.39 K/mm3 (0.00-0.68); EOSINOPHILS PERCENT AUTO 4 % (0-6); Hematocrit 32.7 % (37.0-53.0); Hemoglobin 9.3 g/dL (13.5-17.5); IMMATURE GRAN ABSOLUTE AUTO 0.06 K/mm3 (0.00-0.10); IMMATURE GRAN PERCENT AUTO 1 % (0-1); LYMPHOCYTES ABSOLUTE AUTO 1.21 K/mm3 (0.84-5.20); LYMPHOCYTES PERCENT AUTO 12 % (21-46); MONOCYTES ABSOLUTE AUTO 0.79 K/mm3 (0.16-1.47); MONOCYTES PERCENT AUTO 8 % (4-13); Mean Corpuscular HGB 19.3 pg (26.0-34.0); Mean Corpuscular HGB Conc 28.4 g/dL (31.5-36.5); Mean Corpuscular Volume 68 fL (80-100); Mean Platelet Volume 9.6 fL (9.1-12.4); NEUTROPHILS ABSOLUTE AUTO 7.21 K/mm3 (1.96-9.15); NEUTROPHILS PERCENT AUTO 74 % (41-73); Platelet Count 433 K/mm3 (150-400); RDW Coefficient Variation 21.1 % (11.7-14.2); Red Blood Cell Count 4.82 M/mm3 (4.30-5.90); White Blood Cell Count 9.74 K/mm3 (4.00-11.30)
--- NOTE | 2019-02-15 16:20 | NUR ---
CARE ASSUMED 0900: CARE ASSUMED, ASSESSMENT COMPLETED. PT AWAKE, ALERT, ORIENTED TO SELF AND SURROUNDINGS, PLEASANT AND COOPERATIVE, EASILY REDIRECTABLE. HR 100-130'S AFIB, OTHER VSS, PT DENIES CHEST PAIN/PRESSURE AT THIS TIME, DENIES SOB. NS AND ABX INFUSING PER ORDERS, ANUSHA VEST IN PLACE FOR SAFETY, BED ALARM ON. 1000: DR. LIZTRATE IN TO SEE PATIENT, NEW ORDERS. PT TOLERATING P.O. MEDICATIONS WELL, DENIES NEEDS OR C/O. TOLERATING BREAKFAST WITHOUT DIFFICULTY. 1200: PT REFUSED LUNCH HE FINISHED EATING BREAKFAST LATE, IS NOW LYING IN BED RESTING WITH EYES CLOSED, VSS. HR 70'S-80'S AFIB. 1300: PT REMAINS PLEASANTLY CONFUSED, EASILY REDIRECTABLE. ANUSHA SILVA'D AT THIS TIME. BED ALARM ON. 1600: PT SLEEPING, VSS, HR REMAINS 70'S AFIB. BED ALARM REMAINS ON.
--- NOTE | 2019-02-15 17:59 | NUR ---
Spiritual Care initial note: Mr. Jolley was awake, but did not engage in conversation. He appears comfortable and denied pain. I held his hand and prayed for him. He seems well cared-for by nursing. No family/friends present. Sat with him, holding his hand for awhile. Tunnel Drier Operator services will remain available.
--- NOTE | 2019-02-15 19:16 | NUR ---
PT UP TO CHAIR FOR DINNER, TOLERATED WELL. BACK TO BED WITH WALKER AND 1 PERSON ASSIST, GAIT SLOW AND WEAK. BED ALARM SET, PT DENIES C/O AT THIS TIME. HR REMAINS 70'S AFIB, CIWA'S MINIMAL TODAY, RESPONDED WELL TO LIBRIUM. PT PLEASANT AND COOPERATIVE, VSS, REPORT TO ONCOMING SHIFT.
[2019-02-16 03:10] LABS: BASOPHILS ABSOLUTE AUTO 0.07 K/mm3 (0.00-0.23); BASOPHILS PERCENT AUTO 1 % (0-2); EOSINOPHILS ABSOLUTE AUTO 0.41 K/mm3 (0.00-0.68); EOSINOPHILS PERCENT AUTO 4 % (0-6); Hematocrit 29.7 % (37.0-53.0); Hemoglobin 8.5 g/dL (13.5-17.5); IMMATURE GRAN ABSOLUTE AUTO 0.06 K/mm3 (0.00-0.10); IMMATURE GRAN PERCENT AUTO 1 % (0-1); LYMPHOCYTES ABSOLUTE AUTO 1.13 K/mm3 (0.84-5.20); LYMPHOCYTES PERCENT AUTO 11 % (21-46); MONOCYTES ABSOLUTE AUTO 0.66 K/mm3 (0.16-1.47); MONOCYTES PERCENT AUTO 6 % (4-13); Mean Corpuscular HGB 19.1 pg (26.0-34.0); Mean Corpuscular HGB Conc 28.6 g/dL (31.5-36.5); Mean Corpuscular Volume 67 fL (80-100); Mean Platelet Volume 9.2 fL (9.1-12.4); NEUTROPHILS PERCENT AUTO 77 % (41-73); Platelet Count 419 K/mm3 (150-400); RDW Coefficient Variation 20.8 % (11.7-14.2); RDW Standard Deviation 48.4 fL (35.1-46.3); Red Blood Cell Count 4.44 M/mm3 (4.30-5.90); White Blood Cell Count 10.33 K/mm3 (4.00-11.30)
[2019-02-16 03:28] LABS: Anion Gap 7 mmol/L (6-16); Blood Urea Nitrogen 12 mg/dL (8-24); Bun/Creatinine Ratio 10.8 (12.0-20.0); CO2, Blood 25 mmol/L (21-32); Calcium, Blood 8.3 mg/dL (8.5-10.1); Chloride, Blood 106 mmol/L (98-108); Creatinine, Blood 1.11 mg/dL (0.60-1.20); Glomerular Filtration Rate >60 (60-); Glucose, Blood 101 mg/dL (70-99); Phosphorus, Blood 2.6 mg/dL (2.5-4.9); Potassium, Blood 3.9 mmol/L (3.5-5.5); Sodium, Blood 138 mmol/L (136-145)
--- NOTE | 2019-02-16 05:40 | NUR ---
SHIFT SUMMARY PATIENT IS A LOT MORE AWARE TODAY. RECALLS THINGS FROM PAST. CONFUSION FROM TIME TO TIME. PATIENT HAD TROUBLE STAYING ASLEEP, BUT NAPPED. GOOD APPETITE. UOP ADEQUATE. SATS >94% ON RA. LUNGS CLEAR WITH DIMINISHED BASES. STRONG PULSES THROUGHOUT. NO BM. PATIENT STILL IN AFIB, RATE CONTROLLED 80-90S. AFEBRILE THROUGHOUT NIGHT. WILL CONTINUE TO MONITOR UNITL DAYSHIFT NURSE REPORT.
--- NOTE | 2019-02-16 08:00 | NUR ---
ASSUMED CARE NOTE: RECEVIED REPORT FROM RADHA MILLER. PT IS ALERT AND ORIENTED TO SELF. PT IS CONFUSED AND IS UNABLE TO RECALL RECENT EVENTS. HOWEVER, PT IS ABLE TO FOLLOW DIRECTIONS AND IS EASILY REDIRECTABLE. PT IS ON RA WITH SPO2 ABOVE 94%, PT DENIES ANY CP/SOB. UNSURE WHEN LAST BM WAS, PT IS C/O ABDOMINAL TENDERNESS, WILL ASK FOR BOWEL CARE. TAB ALARM IN PLACE, BED AT LOWEST LEVEL, CALL LIGHT WITHIN REACH.
--- NOTE | 2019-02-16 17:15 | NUR ---
TRANSFER/SUMMARY NOTE: PT CONTINUES TO BE CONFUSED, HOWEVER IS ABLE TO FOLLOW DIRECTIONS. PT HAS BEEN GETTING UP 1X WITH FWW TO CHAIR AND BSC. PT'S L FA 20G IV IS PATNET AND SALINE LOCKED. AFIB WITH HR IN THE 70'S. TRUJILLO PATNET AND DRAINING YELLOW CLEAR URINE. REPORT WAS CALLED TO BOBBI MILLER. PT WAS TRANSFERD IN TO MEDICAL UNIT. PT WAS ORIENTED TO ROOM AND STAFF. BED AT LOWEST LEVEL, BED ALARM ON AND CALL LIGHT IS WITHIN REACH.
--- NOTE | 2019-02-16 18:41 | NUR ---
SHIFT SUMMARY CIWA 3 ASSESSED. PATIENT ARRIVED BY BED FROM ICU. PATIENT PLEASANTLY CONFUSED AT THIS TIME. TELEMETRY IN PLACE.
--- NOTE | 2019-02-17 01:32 | NUR ---
PT CARE BEING TRANSFERRED TO ROLANDA MILLER. PT HAD SOME BILAT WRIST DISCOMFORT THAT RESPONDED WELL TO TYLENOL. PT HAS BEEN EATING T/O SHIFT AND RESTING. PT FOLLOWS DIRECTIONS AND IS EASILY DIRECTABLE. PT HAD A LARGE BM. PT CIWA HAS BEEN A 3 AND REQUIRED NO TX.
--- NOTE | 2019-02-17 06:59 | NUR ---
02/17/19 0630 AWAKE AND ANXIOUS FOR BREAKFAST. DENIES ANY PAIN AT PRESENT. VITALS STABLE. UNEVENTFUL NIGHT.
[2019-02-17 09:39] LABS: BASOPHILS PERCENT AUTO 1 % (0-2); EOSINOPHILS ABSOLUTE AUTO 0.46 K/mm3 (0.00-0.68); EOSINOPHILS PERCENT AUTO 4 % (0-6); Hematocrit 28.8 % (37.0-53.0); Hemoglobin 8.3 g/dL (13.5-17.5); IMMATURE GRAN ABSOLUTE AUTO 0.11 K/mm3 (0.00-0.10); IMMATURE GRAN PERCENT AUTO 1 % (0-1); LYMPHOCYTES PERCENT AUTO 13 % (21-46); MONOCYTES ABSOLUTE AUTO 0.81 K/mm3 (0.16-1.47); MONOCYTES PERCENT AUTO 7 % (4-13); Mean Corpuscular HGB 19.3 pg (26.0-34.0); Mean Corpuscular HGB Conc 28.8 g/dL (31.5-36.5); Mean Corpuscular Volume 67 fL (80-100); Mean Platelet Volume 9.7 fL (9.1-12.4); NEUTROPHILS ABSOLUTE AUTO 8.42 K/mm3 (1.96-9.15); NEUTROPHILS PERCENT AUTO 74 % (41-73); Platelet Count 399 K/mm3 (150-400); RDW Coefficient Variation 20.7 % (11.7-14.2); RDW Standard Deviation 48.9 fL (35.1-46.3); Red Blood Cell Count 4.31 M/mm3 (4.30-5.90)
[2019-02-17 09:54] LABS: Anion Gap 5 mmol/L (6-16); Blood Urea Nitrogen 18 mg/dL (8-24); Bun/Creatinine Ratio 19.3 (12.0-20.0); CO2, Blood 22 mmol/L (21-32); Calcium, Blood 8.4 mg/dL (8.5-10.1); Chloride, Blood 110 mmol/L (98-108); Creatinine, Blood 0.94 mg/dL (0.60-1.20); Glomerular Filtration Rate >60 (60-); Glucose, Blood 130 mg/dL (70-99); Sodium, Blood 137 mmol/L (136-145)
--- NOTE | 2019-02-17 17:26 | NUR ---
SHIFT SUMMARY PATIENT A/O X 3 FOR LARGEST PORTION OF SHIFT. PATIENT VSS OBSERVED STABLE THROUGHOUT SHIFT. PATIENT DIDN'T PRESENT WITH S/S OF ETOH WITHDRAWAL DURING SHIFT. TRUJILLO CATH DC'D AND PATIENT IS VOIDING NORMALLY. PATIENT TELEMETRY DISCONTINUED. BED ALARM REMOVED PATIENT HAS BEEN AMBULATING APPROPRIATELY AND DEMONSTRATES UNDERSTANDING OF LIMITATIONS AND HAS BEEN CALLING FOR ASSISTANCE APPROPRIATELY. PATIENT REPORTS NEEDING ASSISTANCE WITH HOME ADL'S AND CARE MANAGEMENT HAS BEEN WORKING WITH PATIENT TO REMEDY ISSUES. PATIENT [id number] IS TO GO HOME TOMORROW 02/18/19.
[2019-02-18 05:05] LABS: BASOPHILS ABSOLUTE AUTO 0.11 K/mm3 (0.00-0.23); BASOPHILS PERCENT AUTO 1 % (0-2); EOSINOPHILS PERCENT AUTO 4 % (0-6); Hematocrit 29.6 % (37.0-53.0); Hemoglobin 8.6 g/dL (13.5-17.5); IMMATURE GRAN ABSOLUTE AUTO 0.16 K/mm3 (0.00-0.10); IMMATURE GRAN PERCENT AUTO 1 % (0-1); LYMPHOCYTES ABSOLUTE AUTO 1.89 K/mm3 (0.84-5.20); LYMPHOCYTES PERCENT AUTO 16 % (21-46); MONOCYTES ABSOLUTE AUTO 0.98 K/mm3 (0.16-1.47); MONOCYTES PERCENT AUTO 8 % (4-13); Mean Corpuscular HGB 19.3 pg (26.0-34.0); Mean Corpuscular HGB Conc 29.1 g/dL (31.5-36.5); Mean Corpuscular Volume 66 fL (80-100); NEUTROPHILS ABSOLUTE AUTO 8.21 K/mm3 (1.96-9.15); NEUTROPHILS PERCENT AUTO 69 % (41-73); Platelet Count 436 K/mm3 (150-400); RDW Coefficient Variation 21.2 % (11.7-14.2); RDW Standard Deviation 48.8 fL (35.1-46.3); Red Blood Cell Count 4.46 M/mm3 (4.30-5.90); White Blood Cell Count 11.85 K/mm3 (4.00-11.30)
--- NOTE | 2019-02-18 05:15 | NUR ---
PT REPORTS ATHRITIC AND NERVE PAIN TO SHOULDERS AND NECK UNRESOLVED BY PRN TYLENOL. REPORTED TO DR CARRILLO. ORDERS GABAPENTIN 100 MG PO TID PRN.
[2019-02-18 06:07] LABS: Anion Gap 6 mmol/L (6-16); Blood Urea Nitrogen 20 mg/dL (8-24); Bun/Creatinine Ratio 21.9 (12.0-20.0); CO2, Blood 23 mmol/L (21-32); Chloride, Blood 108 mmol/L (98-108); Creatinine, Blood 0.92 mg/dL (0.60-1.20); Glomerular Filtration Rate >60 (60-); Glucose, Blood 87 mg/dL (70-99); Potassium, Blood 4.2 mmol/L (3.5-5.5); Sodium, Blood 137 mmol/L (136-145)
--- NOTE | 2019-02-18 06:17 | NUR ---
PRESSER AUTOMATIC SUMMARY PT A/O X3. PLEASANT AND COOPERATIVE. STATED HE WAS NOT ABLE TO SLEEP WELL TONIGHT DUE TO ARTHRITIC PAIN. WAS MEDICATED WITH TYLENOL ONCE THIS SHIFT BUT THAT DID NOT HELP WITH PAIN. WHEN ASKED WHAT HELPED HIM WITH HIS ARTHRITIC PAIN AT HOME, PT SAID GABAPENTIN DID. DR. CARRILLO NOTIFIED OF THIS. GABAPENTIN 100MG PRN RID ORDERED AND GIVEN. 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 CIWA SCORED A 4 IN BEGINNING OF SHIFT. WILL RE-ASSESS CIWA SCORE TOWARDS THE END OF SHIFT. VSS, NO ACUTE CHANGES THIS SHIFT.
--- NOTE | 2019-02-18 06:43 | NUR ---
CIWA SCORES REASSESSED TO BE A SCORE OF 5. PT STATES HE HAS ANIETY AT BASELINE. PLEASANT AND COOPERATIVE. DOES NOT SEEM TO BE IN ANY DISTRESS.
[2019-02-18] MEDS ORDERED: ABILIFY MYCITE15 MG PO (08:34)
[2019-02-18] MEDS ORDERED: ATOR40TA PO (08:35)
[2019-02-18] MEDS ORDERED: Cymbalta30 MG PO (08:36)
[2019-02-18] MEDS ORDERED: FOLI1 PO (08:36)
[2019-02-18] MEDS ORDERED: GABA100 PO (08:39)
[2019-02-18] MEDS ORDERED: NITR.6SL SL (08:41)
[2019-02-18] MEDS ORDERED: LISI5 PO (08:50)
[2019-02-18] MEDS ORDERED: METO25 PO (08:52)
[2019-02-18] MEDS ORDERED: ONE DAILY ESS400 MCG PO (08:54)
[2019-02-18] MEDS ORDERED: OXYC5 PO (08:55)
[2019-02-18] MEDS ORDERED: ROXICODONE5 MG PO (08:57)
[2019-02-18] MEDS ORDERED: Thiamine HCl100 MG PO (08:58)
[2019-02-18] MEDS ORDERED: CEPH500 PO (09:16)
[2019-02-18] MEDS ORDERED: FAMO20 PO (09:21)
[2019-02-18] MEDS ORDERED: DILT60 PO (09:21)
[2019-02-18] MEDS ORDERED: FERSU300 PO (09:22)
[2019-02-18] MEDS ORDERED: Culturelle1 CAP PO (09:23)
[2019-02-18] MEDS ORDERED: Nicoderm Cq1 EAC1 TOP (09:29)
[2019-02-18] MEDS ORDERED: ONDA4ODT MM (09:30)
--- NOTE | 2019-02-18 13:30 | NUR ---
PATIENT D/C'D TO HOME WITH A FRIEND. RX MEDICATIONS FAXED TO [facility] [address]. D/C INSTRUCTIONS AND EDUCATION DISCUSSED WITH PATIENT AND COPY PROVIDED. PATIENT DENIES ANY FURTHER QUESTIONS OR CONCERNS.
== END 2019-02-18 13:30 | disposition home health service (06) | DRG 871 ==
LOC: ER 17:14 → ICUW 19:31 → ICUE 20:26 → MEDS 02-16 17:10 → ENPENDDIS 02-18 08:38 → MEDS 02-18 13:30
PROVIDERS: Emergency Medicine; Family Medicine; ADMIT Family Medicine
DX: A41.9 Sepsis, unspecified organism (principal); G93.41 Metabolic encephalopathy; J18.9 Pneumonia, unspecified organism; E44.1 Mild protein-calorie malnutrition; I42.9 Cardiomyopathy, unspecified; N39.0 Urinary tract infection, site not specified; F19.20 Other psychoactive substance dependence, uncomplicated; I50.22 Chronic systolic (congestive) heart failure; F10.239 Alcohol dependence with withdrawal, unspecified; F31.9 Bipolar disorder, unspecified; N18.9 Chronic kidney disease, unspecified; D63.8 Anemia in other chronic diseases classified elsewhere; E86.0 Dehydration; G89.29 Other chronic pain; I25.2 Old myocardial infarction; I48.91 Unspecified atrial fibrillation; I73.9 Peripheral vascular disease, unspecified; Z95.810 Presence of automatic (implantable) cardiac defibrillator; J44.9 Chronic obstructive pulmonary disease, unspecified; I25.10 Atherosclerotic heart disease of native coronary artery without angina pectoris; Z86.73 Personal history of transient ischemic attack (TIA), and cerebral infarction without residual deficits; F17.210 Nicotine dependence, cigarettes, uncomplicated; I08.0 Rheumatic disorders of both mitral and aortic valves; Z68.20 Body mass index [BMI] 20.0-20.9, adult; D47.3 Essential (hemorrhagic) thrombocythemia
CPT/HCPCS: 36415; 51702; 70450; 71045; 71046; 80048; 80053; 80076; 81001; 82140; 83605; 83735; 84100; 84439; 84443; 84484; 85025; 85610; 87040; 87086; 93005; 93010; 93306; 94761; 96361-59; 96374-59; 96375-59; 96376-59; 99285-25; A9270; A9270-GY; G0480; J0696; J1650; J1940; J1956; J2060; J2405; J3370; J3411; J3475; J7030; J7042